=== PATIENT | male | born 1945 | race Caucasian/White ===

== ENCOUNTER 2019-07-31 15:34 | Outpatient (CLI) | payer MEDICARE, SELFPAY ==
--- NOTE | 2019-07-31 | ECG_ITS ---
Measurements Intervals [place] Rate: 82 P: 57 SC: 180 QRS: -14 QRSD: 82 T: 47 QT: 386 QTc: 451 Interpretive Statements SINUS RHYTHM FREQUENT VENTRICULAR PREMATURE COMPLEXES EARLY PRECORDIAL R/S TRANSITION BASELINE ARTIFACT- III, AVF ABNORMAL ECG Electronically Signed On 07-31-2019 20:05:09 CDT by John Paul Alberto D.O.
== END 2019-07-31 15:35 | disposition home or self-care (01) ==
PROVIDERS: PCP Family Medicine; Visit Provider Family Medicine
DX: I10 Essential (primary) hypertension (principal); R94.31 Abnormal electrocardiogram [ECG] [EKG]
CPT/HCPCS: 93005